=== PATIENT | female | born 1990 | race Hispanic/Latino ===

== ENCOUNTER 2016-10-26 02:34 | Emergency (ER) | payer MEDICAID ==
[~2016-10-26] VITALS: Ht 152.4 cm; Wt 59.1 kg
[~2016-10-26 02:34] MED LIST: prenatal vitamins
[2016-10-26 02:39] VITALS: BP 111/67; PULSE 85; RESP 16; O2SAT 98
--- NOTE | 2016-10-26 03:05 | ED.REPORT ---
HPI-Preg Under 20 Weeks Date of Service Oct 26, 2016 ED Provider: Waqar Garcia MD An 16 week 26 year old female with two previous pregnancies presents to the ED complaining of left flank pain and hematuria. The flank pain began at 01:30 tonight and has worsened since to a level of 9/10. She describes it as similar to the cramping that she experiences during menstruation. The pt denies dysuria. Nursing Notes Stated Complaint: 18WKS PREG- BLEEDING Chief Complaint: Female Abdominal Pain Nursing Notes Reviewed: Yes Allergies: Coded Allergies: No Known Allergies (Unverified Allergy, 10/01/10) Scheduled ([ vitamins]) DAILY General Time Seen by Provider: 03:04 Chief Complaint Flank pain Hx Obtained From: Patient Arrived By: Walk-in Onset Occurred: 1 - 4 hours ago Symptom Duration: Since onset Recent Healthcare: No recent hospitalization, Recent doctor visit Similar Sx Previous: No Past Medical History Past Medical History none reported Past Surgical History none reported Smoking History Unknown if Ever Smoker Social History Other Social History: Good social support Ambulatory Status Independent Review of Systems Constitutional: Denies: Fever Respiratory: Denies: Non-productive cough, Shortness of breath Cardiovascular: Denies: Chest pain GI: Denies: Abdominal pain, Nausea, Vomiting Female: Reports: Flank pain (left), Hematuria, Denies: Dysuria Musculoskeletal: Denies: Back pain, Neck pain Skin: Denies Rash Complete sys rev & neg: except as marked. Physical Exam Initial Vital Signs Vital Signs (First) Date Time Temp Pulse Resp B/P Pulse Ox O2 Delivery O2 Flow Rate FiO2 10/26/16 02:39 36.2 85 16 111/67 98 Room Air Initial VS: Reviewed, Vital signs normal General/Constitutional: Awake, Alert Abdomen: Atraumatic, Soft diffuse abdominal tenderness, more so on the left side Female Genitourinary: Exam deferred : Exam deferred ENT: Atraumatic, Airway patent, Mucous membranes moist Respiratory / Chest: Atraumatic, Breath sounds NL, Breath sounds = bilat, No respiratory distress Cardiovascular: Heart rate NL, Regular rhythm, Heart sounds NL Back: Atraumatic, Full range of motion Neurologic: Oriented X3, Speech NL, No motor deficits, No sensory deficits Head / Eyes: Atraumatic, Normocephalic, PERRL, EOMI Neck: Atraumatic, Supple, Full range of motion Upper Extremity / MS: Atraumatic, Full range of motion Lower Extremity / Pelvis / MS: Atraumatic, Full range of motion Skin: Atraumatic, Color NL, No rash, Warm, Dry Psychiatric: Affect NL, Mood NL Interpretation & Diagnostics Lab Results Interpretation Test 10/26/16 02:50 Hold Urine Received (Received) Re-Eval/Medical Decision Med Decision/Clinical Course 26-year-old female at 18 weeks and a previously uncomplicated . She has had some bleeding and cramping now. Rather than calling ultrasounded from home, her care will be turned over change of shift to Dr. Solano an ultrasound ordered as soon as they arrive. Source of Hx: Old records Counseled Regarding: Diagnosis, Lab results Discharge & Departure Shift Change Sign-Out Patient Care Transferred: Yes Discussed Complaint(s): Yes Laboratory Evaluation: Lab evaluation discussed Primary Impression: Weeks of gestation: 18 weeks Qualified Code: Z3A.18 - 18 weeks gestation of Additional Impression: Hemorrhage complicating Disposition: Home Discharge Condition All VS Reviewed: Yes Condition: Stable Referrals: NOPCP (PCP) Care Transferred to: Dr. Solano Care Transferred at: 06:00 Anthonyibroberto Attestation Portions of this note were transcribed by Augustina Frances. I, Dr. Garcia personally performed the history, physical exam and medical decision-making; I reviewed and confirmed the accuracy of the information in the transcribed note. Signed by: Toro Chapman, 10/26/2016 and 06:33. Waqar Garcia MD Oct 26, 2016 03:05 AUGUSTINA FRANCES Oct 26, 2016 03:28
--- NOTE | 2016-10-26 05:38 | NUR ---
nurse from [facility] to ER, FHT's by doppler 150's
[2016-10-26 09:51] VITALS: BP 84/57; PULSE 74; RESP 16; O2SAT 97
--- NOTE | 2016-10-26 12:59 | DRSVH ---
PROCEDURE: US OB 1 OR MORE FETUS LIMITED INDICATIONS: cramping/bleeding 16 weeks, room 16 OUTSIDE/PRIOR DATING DATA: Last menstrual period (LMP): Not available. LMP-based estimated date of delivery (TERESE): Not available. First dating scan (date and location): 08/26/2016 at [facility]. Estimated date of delivery (TERESE) from first dating scan: 03/31/2017. TECHNIQUE: Real-time scanning was performed of the fetus, with image documentation and biometric measurements. COMPARISON: [facility] Ultrasound, US, US OB<14 WKS, 08/26/2016, 13:31. FINDINGS: General: A single living intrauterine gestation is present. Presentation: Vertex. Placenta: Placental position is anterior, without previa. 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 Estimated Weight (EFW): n.a. EFW percentile rank: n.a. Heart Rate: 131 bpm Findings(Amniotic Sac) Amniotic Fluid Index: 15.30 cm Pelvis and Uterus Cervix Length: 4.46 cm Measurement variability in biometric dating: +/- 10 days from 12-20 weeks gestation, +/- 2 weeks from 20-30 weeks gestation, +/- 3 weeks at 30 weeks gestation or more. Other: Not applicable. IMPRESSION: 1. A single living intrauterine gestation. 2. A cause for vaginal bleeding is not identified. 3. Anterior placenta without previa. Dictated by: Judith Osborn M.D. on 10/26/2016 at 12:56 Approved by: Judith Osborn M.D. on 10/26/2016 at 12:56
== END 2016-10-26 09:52 | disposition home or self-care (01) ==
LOC: SED 02:34
DX: O20.9 Hemorrhage in early pregnancy, unspecified (principal); O26.892 Other specified pregnancy related conditions, second trimester; R31.9 Hematuria, unspecified; Z3A.18 18 weeks gestation of pregnancy

== ENCOUNTER 2017-03-29 00:29 | Inpatient (IN) | payer MEDICAID ==
[~2017-03-29] VITALS: Ht 152.4 cm; Wt 71.2 kg
[2017-03-29] MEDS ORDERED: Lactated Ringer's 1,000 ML IV PRN (00:59)
[2017-03-29] MEDS ORDERED: Hemorrhage Kit, Post Partum XX ONE ×2 (01:00→02:05)
[2017-03-29] MEDS ORDERED: Carboprost 250 mCg/mL Inj IM PRN ×2 (01:00→02:05)
[2017-03-29] MEDS ORDERED: Methylergonovine 0.2 mg/mL Inj IM PRN ×2 (01:00→02:05)
[2017-03-29] MEDS ORDERED: Sodium Chloride LOK Flush 10 mL Syringe IVFLUSH PRN (01:00)
[2017-03-29] MEDS ORDERED: Oxytocin 10 Unit/mL Inj IM PRN ×2 (01:00→02:05)
[2017-03-29] MEDS ORDERED: fentaNYL-PF 50 mCg/mL 2 mL Inj IVPUSH PRN (01:00)
[2017-03-29] MEDS ORDERED: Oxytocin 30 Units/500 mL LR 30 UNITS in IV Premix 1 EACH IV PRN ×2 (01:00→02:05)
[2017-03-29] MEDS ORDERED: Ondansetron 2 mg/mL 2 mL Inj IVPUSH PRN (01:15)
[2017-03-29] MEDS ORDERED: EPHEDrine Sulfate 50 mg/mL Inj IVPUSH PRN (01:15)
[2017-03-29] MEDS ORDERED: Atropine 1 mg/10 mL (Code) Syringe IVPUSH PRN (01:15)
[2017-03-29] MEDS ORDERED: fentaNYL 2 mCg/mL-Bupiv 0.125% 100 ML EPIDURAL SCH (01:15)
[2017-03-29] MEDS ORDERED: Lactated Ringer's 1,000 ML IV SCH ×2 (01:15→02:04)
[2017-03-29] MEDS ORDERED: Lactated Ringer's 500 ML IV ONE (01:15)
[2017-03-29 01:37] LABS: Mean Corpuscular Hemoglobin 23.9 pg (27.0-35.0); Mean Corpuscular Volume 76.8 fL (81-100)
--- NOTE | 2017-03-29 01:50 | HP ---
[address] [address] HISTORY AND PHYSICAL PATIENT: MARYA SUMMERS : 1990 MR#: [id number] ADMIT: 03/29/2017 JOB ID: [id number] HISTORY OF PRESENT ILLNESS: The patient is a 26-year-old, 3, para 2, at 39 weeks and 5 days, estimated due date March 31, 2017. Comes to Labor and Delivery with complaint of spontaneous rupture of membranes and contractions. Spontaneous rupture of membranes she noticed since morning of March 28, 2017. Contractions were irregular, became frequent and intense at around 6 p.m. March 28, 2017. heart rate tracing is reactive, category 1. Baseline 130 beats per minute. The patient has contractions every 5 minutes that are moderately intense, reports pain about 6/10 intensity. MEDICATIONS: vitamins. ALLERGIES: NKDA. OBSTETRICAL HISTORY: Two spontaneous vaginal deliveries. The first one in July 2010, weight of the 8 pounds and 3 ounces. The second one in March 2012, weight of the 7 pounds and 15 ounces, both delivered at term. SOCIAL HISTORY: Patient denies smoking, alcohol, or illicit recreational drug use. FAMILY HISTORY: Diabetes type 2. PHYSICAL EXAMINATION: Vital signs: Blood pressure 121/75, pulse 72, respiratory rate 18, temperature 36.6. HEENT: PERRLA. Chest: Clear bilaterally. No adventitious sounds. Cardiovascular: Regular rate and rhythm. Abdomen: Gravid, tender with palpations, nondistended. Extremities: No pitting edema. ABSORPTION OPERATOR exam: The AmniSure test is positive concerning ruptured membranes, the cervix is 4 cm dilated, 60% effaced, -2 station. LABORATORIES: Were reviewed. She is blood group and type O-positive, group B strep negative. Rubella immune. ASSESSMENT AND PLAN: The patient is a 26-year-old, 3, para 2, at 39 weeks and 5 days, being admitted in active labor, ruptured membranes for about 14 hours, vitals stable, amniotic fluid is clear. Patient would like to have an epidural, anesthesiologist was informed. labs were sent. IV hydration will be started with Lactated Ringer's at 125 mL/h. Pain med will be provided with fentanyl 50 mg IV q.1 h. p.r.n. Continuous monitoring shows heart rate tracing category 1. We will anticipate spontaneous vaginal delivery.
[2017-03-29] MEDS ORDERED: Benzocaine (Dermoplast) 20% 60 Gm Spray TOPICAL PRN (02:05)
[2017-03-29] MEDS ORDERED: Witch Hazel-Glycerin Pads TOPICAL PRN (02:05)
--- NOTE | 2017-03-29 02:21 | OP ---
[address] [address] OPERATIVE REPORT PATIENT: MARYA SUMMERS : 1990 MR#: [id number] ADMIT: 03/29/2017 JOB ID: [id number] DATE OF SURGERY: 03/29/2017 SURGEON: PREOPERATIVE DIAGNOSIS(ES): A 26-year-old, 3, para 2, at 39 weeks and 5 days, in active labor. POSTOPERATIVE DIAGNOSIS(ES): A 26-year-old, 3, para 3, precipitous labor, spontaneous vaginal delivery at term. DELIVERY SUMMARY: The patient is a 26-year-old, 3, para 3 now, who came to Labor and Delivery at one o'clock in the morning with complaint of contractions that started at around 6 a.m. on March 28, 2017. The patient stated that she had spontaneous rupture of membranes in the morning with slowed leaking of fluid. At one o'clock patient was examined and was found on cervical check to be 4 cm dilated, 50% effaced, -2 station. AmniSure testing was positive. She was admitted for delivery. The patient progressed from 4 cm to full dilation at 1:40 a.m., about 40 minutes after her admission, and started pushing at around the same time. She underwent spontaneous vaginal delivery at 1:48 a.m., delivered a female with Apgars 9 at one minute and 9 at five minutes. Weight 3348 g. The patient had a small first-degree perineal laceration that was repaired with 3-0 Vicryl, two [id number] sutures were placed. The estimated blood loss was 200 mL. Oxytocin was started right after delivery of the , delayed cord clamping was provided for one minute. The placenta was delivered at 1:58 a.m., was found to be intact with three-vessel cord. All instruments and sponge counts were correct x2.
[2017-03-29] MEDS: oxyCODONE-Acetamin 5-325 mg Tablet PO PRN ×2 (04:34→10:13)
[2017-03-29] MEDS: Ascorbic Acid 500 mg Tablet PO SCH ×2 (08:27→19:29)
[2017-03-29] MEDS ORDERED: Sodium Chloride LOK Flush 10 mL Syringe IVFLUSH SCH (08:30)
[2017-03-30 07:33] LABS: Mean Corpuscular Hemoglobin 23.7 pg (27.0-35.0); Mean Corpuscular Volume 78.2 fL (81-100)
[2017-03-30] MEDS: Ascorbic Acid 500 mg Tablet PO SCH (07:47)
--- NOTE | 2017-03-30 13:10 | PCM.DIMED ---
Discharge Instructions Date of Service Mar 30, 2017 Dates of Hospitalization Mar 29, 2017 at 01:00 Diet Discharge Diet: No restrictions Activity Discharge Activity: No restrictions Call your provider Call your provider for: Fever or Chills, Shortness of breath, Bleeding, Chest pain, Vomitting, Excessive diarrhea, Weakness (unilateral) Patient Instructions Follow-up with PCP in: 6 weeks Carlin Piña MD Mar 30, 2017 13:10
[2017-03-30] MEDS ORDERED: FERR-74 PO (13:11)
[2017-03-30] MEDS ORDERED: IBUP-1827 PO (13:11)
[2017-03-30] MEDS ORDERED: DOCU-41 PO (13:11)
--- NOTE | 2017-03-30 13:50 | DIS ---
[address] [address] DISCHARGE SUMMARY PATIENT: MARYA SUMMERS : 1990 MR#: [id number] ADMIT: 03/29/2017 JOB ID: [id number] DIS: 03/30/2017 ADMITTING DIAGNOSIS: A 26-year-old 3, para 2, at 39 weeks and five days in active labor. DISCHARGE DIAGNOSIS: A 26-year-old, 3, para 3, precipitous labor status post spontaneous vaginal delivery at term. HOSPITAL COURSE: The patient is a 26-year-old 3, para 3, who was started having contractions every 3-4 minutes on March 28, 2017. She has been having leaking of amniotic fluid since morning of March 28, 2017. The patient presented to Labor and Delivery being 4 cm dilated. On cervical examination, 50% effaced, station -2. Initial testing confirmed ruptured membranes. The patient was admitted to delivery at 1 a.m. March 29, 2017 and less than 1 hour later at 1:48 a.m. she underwent spontaneous vaginal delivery of female with Apgars 9 at one minute and 9 at five minutes. Weight 3348 grams. The delivery was uncomplicated, estimated blood loss 200 mL. On day one, March 30, 2017, the patient was doing well, ambulating, breast-feeding, having mild vaginal spotting, denied any significant pelvic pain, pelvic transfer controlled with Motrin only. The vitals were stable, she was afebrile. The temperature and pulse were normal. On examination the fundus was firm. Located at the level of the umbilicus. There was no abnormal vaginal discharge, vaginal bleeding. The patient was discharged home on day one, March 30, 2017 in stable condition with all discharge criteria met. She was given prescriptions for Motrin 600 mg p.o. 4x daily p.r.n. for pain relief, Colace 100 mg p.o. b.i.d. p.r.n. and ferrous sulfate 325 mg p.o. daily. Follow up visit in [facility] is scheduled in six weeks.
[2017-03-30 13:57] VITALS: BP 111/68; PULSE 68; RESP 16
== END 2017-03-30 15:47 | disposition home or self-care (01) | DRG 560 ==
LOC: FBCO 00:29 → FBC 01:00
PROVIDERS: ADMIT Legal Medicine; ATTEND Legal Medicine
PROC: 10E0XZZ Delivery of Products of Conception, External Approach (ICD-10-PCS; principal; 2017-03-29)
PROC: 0HQ9XZZ Repair Perineum Skin, External Approach (ICD-10-PCS; 2017-03-29)
DX: O70.0 First degree perineal laceration during delivery (principal); O62.3 Precipitate labor; Z3A.39 39 weeks gestation of pregnancy; Z37.0 Single live birth